=== PATIENT | female | born 1960 | race Asian ===

== ENCOUNTER 2017-10-31 09:31 | Emergency (ER) | payer BC ==
[2017-10-31] MEDS: IBUPROFEN 200 MG TAB PO (11:11)
== END 2017-10-31 11:13 | disposition home or self-care (01) ==
LOC: FTE 09:31
DX: S80.01XA Contusion of right knee, initial encounter (principal); W01.0XXA Fall on same level from slipping, tripping and stumbling without subsequent striking against object, initial encounter; Y92.9 Unspecified place or not applicable
CPT/HCPCS: 73562; 99283-25